=== PATIENT | female | born 1945 | race Caucasian/White ===

== ENCOUNTER 2018-05-27 08:47 | Outpatient (CLI) | payer OTHER ==
[~2018-05-27 08:47] MED LIST: CEFADROXIL500 MG PO; CLARINEX5 MG/TAB PO; SYNTHROID150 MCG; TENORMIN25 MG; ULTRACET PO; XARELTO10 MG PO
== END 2018-05-27 08:56 | disposition home or self-care (01) ==
LOC: LAB 08:47
DX: C73 Malignant neoplasm of thyroid gland (principal); E89.0 Postprocedural hypothyroidism; D72.829 Elevated white blood cell count, unspecified; C69.01 Malignant neoplasm of right conjunctiva; J40 Bronchitis, not specified as acute or chronic

== ENCOUNTER → 2018-06-02 | Outpatient (CLI) | payer OTHER | END | disposition home or self-care (01) | LOC: NUCLEAR 13:51 | DX: C73 Malignant neoplasm of thyroid gland (principal) | CPT/HCPCS: 78018; 78020; A9528 ==